=== PATIENT | male | born 1935 | race Caucasian/White ===

== ENCOUNTER → 2017-01-15 12:32 | Outpatient (CLI) | payer MEDICARE, BC ==
[~2017-01-15 12:32] MED LIST: ASPIRIN81 MG PO; FENOGLIDE40 MG PO; FLOMAX0.4 MG PO; HYDROCODONE-APA1 TAB PO; ICAPS AREDS1 TAB.SA PO; PLAVIX75 MG PO; PRILOSEC20 MG PO; ZOCOR20 MG PO
== END | disposition home or self-care (01) ==
LOC: D.CT 12:32
DX: I71.01 Dissection of thoracic aorta (principal)

== ENCOUNTER 2017-12-09 12:55 | Emergency (ER) | payer MEDICARE, BC ==
[2015-11-29 10:30] VITALS: BMI 26.8
[2017-12-09 13:20] LABS: HEMATOCRIT 40.2 % (42.0-54.0); HEMOGLOBIN 14.2 g/dL (13.5-17.5); LYMPHOCYTES 23.8 % (15-50); MCH 32.1 pg (26.0-34.0); MCHC 35.3 g/dL (31.0-37.0); MEAN PLATELET VOLUME 10.1 fL (7.4-10.4); NEUTROPHILS 71.6 % (40-80); RBC 4.42 10x6/uL (4.20-6.10); RDW 13.4 % (11.5-14.5); WBC 6.8 10x3/uL (4.8-10.8)
[2017-12-09 13:24] LABS: PLATELET COUNT 123 10x3/uL (130-400)
[2017-12-09 13:34] LABS: ALBUMIN 3.9 g/dL (3.4-5.0); ALKALINE PHOSPHATASE 100 U/L (46-116); ALT (SGPT) 19 U/L (10-68); BILIRUBIN - TOTAL 0.66 mg/dL (0.2-1.3); CALC OSMOLALITY 283 mosm/kg (275-300); CALCIUM 8.7 mg/dL (8.5-10.1); CHLORIDE - SERUM 104 mmol/L (98-107); GLUCOSE 108 mg/dL (74-106); POTASSIUM - SERUM 4.1 mmol/L (3.5-5.1); PROTEIN - SERUM 7.4 g/dL (6.4-8.2); SODIUM 140 mmol/L (136-145); UREA NITROGEN 23 mg/dL (7-18); eGFR NON AFRICAN AMERICAN 76 mL/min (90-120)
[2017-12-09 13:50] LABS: APTT 29.6 SECONDS (22.8-39.4); INR 1.01 (0.85-1.17); PROTIME 12.9 SECONDS (11.6-15.0)
[2017-12-09 13:58] LABS: CKMB 0.4 U/L (0.0-3.6); CREATINE KINASE 69 UL (21-232); TROPONIN-I < 0.017 ng/mL (0.000-0.060)
== END 2017-12-09 17:58 | disposition short-term general hospital (02) ==
LOC: D.ER 12:55
PROVIDERS: Family Medicine
DX: I63.9 Cerebral infarction, unspecified (principal)

== ENCOUNTER 2017-12-20 06:10 | Outpatient (CLI) | payer MEDICARE, BC ==
[~2017-12-20] VITALS: Ht 174 cm; Wt 77.3 kg
[2017-12-20] MEDS ORDERED: DECADRON4 MG PO (07:08)
[2017-12-20] MEDS ORDERED: PREDNISONE5 MG (07:08)
[2017-12-20 07:09] VITALS: BP 166/68; Ht 174 cm; Wt 77.3 kg
[2017-12-20 07:17] LABS: BASOPHILS 0.1 % (0-2); EOSINOPHILS 0 % (0-7); HEMATOCRIT 43.4 % (42.0-54.0); HEMOGLOBIN 15.4 g/dL (13.5-17.5); IMMATURE GRANULOCYTES 1.9 % (0-5); LYMPHOCYTES 11.5 % (15-50); MCH 32.7 pg (26.0-34.0); MCHC 35.5 g/dL (31.0-37.0); MCV 92.1 fL (80.0-100.0); MEAN PLATELET VOLUME 11.1 fL (7.4-10.4); MONOCYTES 5.9 % (2-11); NEUTROPHILS 80.6 % (40-80); PLATELET COUNT 143 10x3/uL (130-400); RBC 4.71 10x6/uL (4.20-6.10); RDW 13.2 % (11.5-14.5); WBC 10.4 10x3/uL (4.8-10.8)
[2017-12-20 07:40] LABS: ANION GAP 14.2 mmol/L (8-16); CALCIUM 8.9 mg/dL (8.5-10.1); CARBON DIOXIDE 25.9 mmol/L (21.0-32.0); CREATININE - SERUM 1.1 mg/dL (0.6-1.3); POTASSIUM - SERUM 4.1 mmol/L (3.5-5.1)
[2017-12-20 07:59] LABS: APTT 25.2 SECONDS (22.8-39.4); INR 1.06 (0.85-1.17); PROTIME 13.4 SECONDS (11.6-15.0)
== END 2017-12-20 14:00 | disposition home or self-care (01) ==
LOC: D.SP 06:10 → D.CT 13:00 → D.SP 13:00
PROVIDERS: Specialist
DX: R91.8 Other nonspecific abnormal finding of lung field (principal); R22.0 Localized swelling, mass and lump, head; I10 Essential (primary) hypertension; K21.9 Gastro-esophageal reflux disease without esophagitis; E78.5 Hyperlipidemia, unspecified; Z01.812 Encounter for preprocedural laboratory examination